=== PATIENT | female | born 1950 | race Caucasian/White ===

== ENCOUNTER → 2021-01-16 | Outpatient (CLI) | payer OTHER ==
[~2021-01-16] MED LIST: ASPIRIN EC81 MG PO; BUPROPION HCL100 MG PO; BUSPAR 10MG10 MG PO; BUTALB-ACETAMI1 EAC1 PO; CALCIUM 1,0001 EACH PO; CARAFATE 1 GM TA1 GM PO; CLARITIN 10MG T10 MG PO; CLOPIDOGREL75 MG PO; COZAAR 50MG TAB50 MG PO; DONEPEZIL HCL5 MG PO; FAMOTIDINE40 MG PO; FENOFIBRATE160 MG PO; FLONASE 0.05% N16 GM; FUROSEMIDE40 MG PO; GABAPENTIN400 MG PO; HYDROCODON-ACE1 EAC6 PO; ISOSORBIDE MONO30 MG PO; KENALOG CREAM 015 GM TOP; KEPPRA 500 MG500 MG PO; LINZESS72 MCG PO; METOPROLOL TAR100 MG PO; MIRALAX 119 GR119 GM PO; NITROGLYCERIN0.4 MG SL; OMEPRAZOLE40 MG PO; ONDANSETRON HCL4 MG PO; RANOLAZINE ER1000 MG PO; ROPINIROLE HCL1 MG PO; SIMVASTATIN20 MG PO; TIZANIDINE HCL4 MG PO; TRAZODONE HCL100 MG PO; VENTOLIN HFA 66.7 GM INH; VOLTAREN ARTHRI20 GM TOP
== END ==
LOC: SLEEP 13:46
DX: G47.33 Obstructive sleep apnea (adult) (pediatric) (principal)
CPT/HCPCS: 95811

== ENCOUNTER 2021-02-23 18:36 | Observation (INO) | payer OTHER ==
[~2021-02-23] VITALS: Ht 144.8 cm; Wt 72.1 kg
[2021-02-23 19:33] LABS: HEMOGLOBIN 14.2 gm/dl (12.3-15.3); WHITE BLOOD COUNT 7.5 K/UL (4.5-11.0)
[2021-02-23 19:58] LABS: BUN/CREATININE RATIO 23 (0-10)
[2021-02-24 05:38] LABS: HEMOGLOBIN 13.9 gm/dl (12.3-15.3); RED BLOOD COUNT 5.05 M/UL (4.00-5.10); WHITE BLOOD COUNT 8.3 K/UL (4.5-11.0)
[2021-02-24 06:09] LABS: BUN/CREATININE RATIO 21 (0-10)
[2021-02-24] MEDS ORDERED: BUTALB-ACETAMI1 EAC1 PO (14:00)
[2021-02-24] MEDS ORDERED: GABAPENTIN400 MG PO (14:00)
[2021-02-24] MEDS ORDERED: VENTOLIN HFA 66.7 GM INH (14:02)
[2021-02-24] MEDS ORDERED: BUPROPION HCL100 MG PO (14:07)
[2021-02-24] MEDS ORDERED: CLOPIDOGREL75 MG PO (14:08)
[2021-02-24] MEDS ORDERED: ASPIRIN EC81 MG PO (14:09)
[2021-02-24] MEDS ORDERED: CARAFATE 1 GM TA1 GM PO (14:10)
[2021-02-24] MEDS ORDERED: BUSPAR 10MG10 MG PO (14:10)
[2021-02-24] MEDS ORDERED: COZAAR 50MG TAB50 MG PO (14:11)
[2021-02-24] MEDS ORDERED: DONEPEZIL HCL5 MG PO (14:12)
[2021-02-24] MEDS ORDERED: FAMOTIDINE40 MG PO (14:12)
[2021-02-24] MEDS ORDERED: VOLTAREN ARTHRI20 GM TOP (14:12)
[2021-02-24] MEDS ORDERED: FENOFIBRATE160 MG PO (14:13)
[2021-02-24] MEDS ORDERED: FLONASE 0.05% N16 GM (14:13)
[2021-02-24] MEDS ORDERED: FUROSEMIDE40 MG PO (14:14)
[2021-02-24] MEDS ORDERED: MIRALAX 119 GR119 GM PO (14:14)
[2021-02-24] MEDS ORDERED: KENALOG CREAM 015 GM TOP (14:15)
[2021-02-24] MEDS ORDERED: ISOSORBIDE MONO30 MG PO (14:15)
[2021-02-24] MEDS ORDERED: KEPPRA 500 MG500 MG PO (14:16)
[2021-02-24] MEDS ORDERED: LINZESS72 MCG PO (14:16)
[2021-02-24] MEDS ORDERED: RANOLAZINE ER1000 MG PO (14:17)
[2021-02-24] MEDS ORDERED: METOPROLOL TAR100 MG PO (14:17)
[2021-02-24] MEDS ORDERED: SIMVASTATIN20 MG PO (14:18)
[2021-02-24] MEDS ORDERED: ROPINIROLE HCL1 MG PO (14:18)
[2021-02-24] MEDS ORDERED: CLARITIN 10MG T10 MG PO (14:19)
[2021-02-24] MEDS ORDERED: TIZANIDINE HCL4 MG PO (14:19)
[2021-02-24] MEDS ORDERED: HYDROCODON-ACE1 EAC6 PO (14:20)
[2021-02-24] MEDS ORDERED: OMEPRAZOLE40 MG PO (14:21)
[2021-02-24] MEDS ORDERED: NITROGLYCERIN0.4 MG SL (14:21)
[2021-02-24] MEDS ORDERED: TRAZODONE HCL100 MG PO (14:22)
[2021-02-24] MEDS ORDERED: ONDANSETRON HCL4 MG PO (14:23)
[2021-02-24] MEDS ORDERED: CALCIUM 1,0001 EACH PO (14:24)
--- NOTE | 2021-02-24 17:02 | NUR ---
INSTRUCTED PATIENT ON IMPORTANCE OF KEEPING FOLLOW UP APPOINTMENTS. COME TO ER IF ANY CHEST PAIN. VERBALIZED UNDERSTANDING EDUARDO LAWS R.N.
== END 2021-02-24 17:31 | disposition home or self-care (01) ==
LOC: ER1 18:36 → CDU 20:25 → MED SURG 4 20:25
PROVIDERS: Physician Assistant; ADMIT Internal Medicine
DX: R07.89 Other chest pain (principal); I25.10 Atherosclerotic heart disease of native coronary artery without angina pectoris; I10 Essential (primary) hypertension; E78.5 Hyperlipidemia, unspecified; E11.9 Type 2 diabetes mellitus without complications; I25.2 Old myocardial infarction; G89.4 Chronic pain syndrome; Z82.49 Family history of ischemic heart disease and other diseases of the circulatory system; Z88.8 Allergy status to other drugs, medicaments and biological substances; Z79.82 Long term (current) use of aspirin; Z79.899 Other long term (current) drug therapy; Z20.822 Contact with and (suspected) exposure to COVID-19
CPT/HCPCS: 36415; 71045; 80053; 81001; 82550; 82553; 82962; 83735; 83874; 83880; 84484; 85025; 93005; 96372; 96374; 96375; 99285; G0378; J0360; J1644; J1885; J2405; U0002

== ENCOUNTER 2021-05-09 21:16 | Emergency (ER) | payer OTHER | END 2021-05-09 23:00 | disposition left against medical advice (07) | LOC: ER1 21:16 | DX: Z53.21 Procedure and treatment not carried out due to patient leaving prior to being seen by health care provider (principal) ==